=== PATIENT | female | born 1945 | race Caucasian/White ===

== ENCOUNTER 2017-03-05 14:24 | Emergency (ER) | payer MEDICARE, BC ==
[~2017-03-05] VITALS: Ht 162.6 cm; Wt 63.5 kg
--- NOTE | 2017-03-05 14:55 | NUR ---
PT BIB SELF C/O LUIS LOWER EXTREMITY EDEMA, WARMTH, ERYTHEMA, AND RASH THAT IS WEEPING X3-4 DAYS. NOW SPREADING TO INSIDE OF L LOWER ARM WITH ERYTHEMA AND WARMTH. SKIN WARM NONDIAPHORETIC. RESP EVEN UNLABORED. NAD NOTED. NO OTHER RASHES OR REDNESS NOTED. IN ER BED 02.
[2017-03-05 14:56] LABS: BASOPHILS % (AUTO) 0.5 % (0.0-2.0); EOSINOPHILS % (AUTO) 3.3 % (0.0-6.0); HEMATOCRIT 42 % (33-45); HEMOGLOBIN 13.9 g/dL (11.5-14.8); LYMPHOCYTES % (AUTO) 27.4 % (20.0-44.0); MEAN CORPUSCULAR HEMOGLOBIN 30 PG (26.0-33.0); MEAN CORPUSCULAR HGB CONC 33 g/dl (31.0-36.0); MEAN CORPUSCULAR VOLUME 91 fL (82-100); MONOCYTES % (AUTO) 8.3 % (2.0-12.0); NEUTROPHILS % (AUTO) 60.5 % (43.0-81.0); PLATELET COUNT (AUTO) 287 /CMM (150-450); RDW COEFFICIENT OF VARIATION 13.3 (11.5-15.0); RED BLOOD CELL COUNT(AUTO) 4.59 MIL/uL (4.0-5.2)
[2017-03-05] MEDS ORDERED: IV SET PRIMARY PUMP SET 1 EA INFUS.SET MC ONE (14:56)
[2017-03-05 14:57] LABS: EOSINOPHILS # (AUTO) 0.2 /CMM (0.0-0.7); LYMPHOCYTES # (AUTO) 1.6 /CMM (0.8-4.8); MONOCYTES # (AUTO) 0.5 /CMM (0.1-1.30); NEUTROPHILS # (AUTO) 3.7 /CMM (1.8-8.9)
[2017-03-05] MEDS ORDERED: VANCOMYCIN 1 GM in IV D5W 250 ML IV ONE (15:00)
[2017-03-05 15:07] LABS: CALCIUM, SERUM 9.5 mg/dL (8.5-10.1); CREATININE 0.7 mg/dL (0.6-1.3); POTASSIUM 3.8 mmol/L (3.5-5.1)
--- NOTE | 2017-03-05 16:33 | NUR ---
Patient discharged to home in stable condition. Written and verbal after care instructions given. Patient verbalizes understanding of instruction. IV removed. Catheter intact and site benign. Pressure and 4x4 applied to site. No bleeding noted. AMBULATORY WITH STEADY GAIT.
[2017-03-05 16:34] VITALS: BP 110/78
== END 2017-03-05 16:34 | disposition home or self-care (01) ==
LOC: ER 14:26
DX: L03.116 Cellulitis of left lower limb (principal); L03.115 Cellulitis of right lower limb; Z88.8 Allergy status to other drugs, medicaments and biological substances
CPT/HCPCS: 36415; 80048; 85025; 87040 ×2; 93970; 96365; 99285; A4606; J3370; J7060; Z7610

== ENCOUNTER 2017-03-16 11:47 | Inpatient (IN) | payer MEDICARE, BC ==
[~2017-03-16] VITALS: Ht 167.6 cm; Wt 79.4 kg
--- NOTE | 2017-03-16 12:09 | NUR ---
PT TO ED ROOM 04. bilateral upper and lower extremities swelling/cellulitis. A/A/O. NAD. VS WNL. AMBULATORY W/ STEADY GAIT. CONENCTED TO MONITOR. AWAITING FOR EVAL.
[2017-03-16] MEDS ORDERED: ONDANSETRON HCL/PF - ER 4 MG/2 ML VIAL IV ONE (13:00)
[2017-03-16] MEDS ORDERED: VANCOMYCIN 1 GM in IV D5W 250 ML IV ONE (13:00)
[2017-03-16] MEDS ORDERED: IV NS 0.9% 1,000 ML BAG IV ONE (13:00)
[2017-03-16] MEDS ORDERED: MORPHINE SULFATE INJ 2 MG/ML DISP.SYRIN IV ONE (13:00)
[2017-03-16] MEDS ORDERED: ONDANSETRON HCL/PF 4 MG/2 ML VIAL ONE (13:06)
[2017-03-16] MEDS ORDERED: MORPHINE SULFATE INJ 2 MG/ML DISP.SYRIN ONE (13:06)
[2017-03-16] MEDS ORDERED: IV SET PRIMARY PUMP SET 1 EA INFUS.SET MC ONE ×3 (13:06→20:19)
[2017-03-16] MEDS ORDERED: IV NS 0.9% 1,000 ML ONE ×2 (13:06→13:08)
[2017-03-16] MEDS ORDERED: IV NS 0.9% 500 ML IV ONE (13:08)
[2017-03-16 13:29] LABS: BASOPHILS % (AUTO) 0.4 % (0.0-2.0); EOSINOPHILS # (AUTO) 0.3 /CMM (0.0-0.7); EOSINOPHILS % (AUTO) 4.9 % (0.0-6.0); HEMATOCRIT 37 % (33-45); HEMOGLOBIN 12.4 g/dL (11.5-14.8); LYMPHOCYTES # (AUTO) 1.4 /CMM (0.8-4.8); LYMPHOCYTES % (AUTO) 19.5 % (20.0-44.0); MEAN CORPUSCULAR HEMOGLOBIN 31 PG (26.0-33.0); MEAN CORPUSCULAR HGB CONC 34 g/dl (31.0-36.0); MEAN CORPUSCULAR VOLUME 91 fL (82-100); MONOCYTES # (AUTO) 0.5 /CMM (0.1-1.30); MONOCYTES % (AUTO) 7.4 % (2.0-12.0); NEUTROPHILS # (AUTO) 4.8 /CMM (1.8-8.9); NEUTROPHILS % (AUTO) 67.8 % (43.0-81.0); PLATELET COUNT (AUTO) 380 /CMM (150-450); RDW COEFFICIENT OF VARIATION 14.1 (11.5-15.0); RED BLOOD CELL COUNT(AUTO) 4.07 MIL/uL (4.0-5.2)
[2017-03-16] MEDS ORDERED: PIPERACILLIN /TAZOBACTAM 3.375 G in IV D5W 50 ML IV ONE (13:30)
--- NOTE | 2017-03-16 13:40 | NUR ---
PT MEDICATED ORDERED.
[2017-03-16 13:49] LABS: CALCIUM, SERUM 8.8 mg/dL (8.5-10.1); CARBON DIOXIDE 29 mmol/L (21-32); CHLORIDE 106 mmol/L (98-107); CREATININE 0.8 mg/dL (0.6-1.3); GLUCOSE 112 mg/dL (74-106); POTASSIUM 4.5 mmol/L (3.5-5.1); SODIUM SERUM 140 mmol/L (136-145); UREA NITROGEN, BLOOD 17 mg/dL (7-18)
[2017-03-16 13:51] LABS: INR 0.94 (0.87-1.13)
[2017-03-16] MEDS ORDERED: DULO60CA45 PO (13:53)
[2017-03-16] MEDS ORDERED: AMPH10TA4 PO (13:53)
[2017-03-16] MEDS ORDERED: BUPR-51 PO (13:53)
[2017-03-16 13:55] LABS: LACTIC ACID 1.2 mmol/L (0.4-2.0); TROPONIN I < 0.017 ng/mL (0.00-0.056)
[2017-03-16 13:56] LABS: ALANINE AMINOTRANSFERASE 23 U/L (12-78); ALBUMIN 3.2 g/dL (3.4-5.0); ALKALINE PHOSPHATASE 80 U/L (46-116); ASPARTATE AMINOTRANSFERASE 23 U/L (15-37); BILIRUBIN,DIRECT 0.1 mg/dL (0.0-0.2); BILIRUBIN,TOTAL 0.3 mg/dL (0.2-1.0); TOTAL PROTEIN, SERUM 6.6 g/dL (6.4-8.2)
--- NOTE | 2017-03-16 14:00 | NUR ---
EPIC PAGED, FOOD PREPARATION WORKER
--- NOTE | 2017-03-16 14:02 | NUR ---
CALLED NURSING SUP. FOR MS BED, INFORMED HER SHE MIGHT NEED ISO
[2017-03-16 14:59] LABS: APPEARANCE,URINE Clear (CLEAR); BILIRUBIN,URINE Negative (NEGATIVE); BLOOD, URINE Negative Ery/uL (NEGATIVE); COLOR,URINE Yellow (YELLOW); KETONES,URINE 15 (NEGATIVE); LEUKOCYTE ESTERASE ,URINE Negative (NEGATIVE); NITRITE, URINE Negative (NEGATIVE); PROTEIN,URINE Negative (NEGATIVE); UGLUCOSE Negative (NEGATIVE); UROBILINOGEN,URINE 0.2 EU/dL (0.2)
--- NOTE | 2017-03-16 15:30 | NUR ---
RECEIVED PT FROM ER IN STABLE CONDITION, ALERT AND ORIENTED, NO SOB OR DISTRESS NOTED, NO PAIN AT THIS TIME, ABLE TO AMBULATE DURING TRANSFER FROM [facility] TO BED, ORIENTED OT ROOM, CALL LIGHT AND ENVIRONMENT, WILL INFORM DR. LOWRY ABOUT ADMISSION. PT. SISTER AT BEDSIDE.
[2017-03-16] MEDS ORDERED: MAG HYDROX/AL HYDROX/SIMETH 30 ML UDC PO PRN (16:00)
[2017-03-16] MEDS ORDERED: ACETAMINOPHEN 325 MG TABLET PO PRN (16:00)
[2017-03-16] MEDS ORDERED: MAGNESIUM HYDROXIDE 30 ML UDC PO PRN (16:00)
[2017-03-16] MEDS ORDERED: ZOLPIDEM TARTRATE 5 MG TABLET PO PRN (16:00)
[2017-03-16] MEDS ORDERED: ONDANSETRON HCL/PF 4 MG/2 ML VIAL IVP PRN (16:00)
[2017-03-16] MEDS ORDERED: Z GUARD REMEDY 2 OZ OINT TP PRN (16:00)
[2017-03-16] MEDS ORDERED: HYDROCODONE/APAP 5/325MG 1 EACH TABLET PO PRN (16:00)
[2017-03-16] MEDS ORDERED: TRAMADOL HCL 50 MG TABLET PO PRN (16:30)
[2017-03-16] MEDS ORDERED: FEE PK DOSING 1 MIN EA MC ONE (16:37)
--- NOTE | 2017-03-16 17:00 | NUR ---
PT SEEN BY
[2017-03-16] MEDS: GABAPENTIN 100 MG CAPSULE PO SCH (17:01)
[2017-03-16] MEDS: ENOXAPARIN SODIUM 40 MG/0.4 ML DISP.SYRIN SQ SCH (17:03)
[2017-03-16] MEDS ORDERED: PERMETHRIN 5% CRM 60 GM TUBE TP ONE ×2 (17:30→20:00)
[2017-03-16] MEDS ORDERED: TRIAMCINOLONE ACETONIDE 0.5% 15 GM TUBE TP SCH (17:30)
[2017-03-16] MEDS: LORATADINE 10 MG TABLET PO SCH (18:22)
--- NOTE | 2017-03-16 19:08 | NUR ---
PT IS IN BED RESTING. SHE IS CURRENTLY KNITTING A SCARF. SHE IS A/OX4. NO SOB OR ANY S/S OF DISTRESS NOTED. BED IS IN LOW LOCKED POSITION. CALL LIGHT IS WITHIN REACH. WILL ENDORSE CARE TO PM SHIFT.
--- NOTE | 2017-03-16 19:30 | NUR ---
RN NOTES RECEIVED PT. AWAKE ON BED, A/OX4, AMBULATORY, BILATERAL UPPER/LOWER RASHES, DENIES PAIN, NO SOB, CALLL LIGHT WITHIN REACH, SIDERAILS UPX2 CONTINUE TO MONITOR
[2017-03-16 20:00] VITALS: BP 125/58
[2017-03-16] MEDS ORDERED: SECONDARY IV SET 1 EA INFUS.SET MC ONE (20:19)
[2017-03-16] MEDS ORDERED: IV NS 0.9% 250 ML IV ONE (20:19)
[2017-03-16] MEDS: CEFTRIAXONE 1 G in IV D5W 50 ML IV SCH (20:36)
[2017-03-16] MEDS: TRIAMCINOLONE ACETONIDE 0.1% CR 15 GM TUBE TP SCH (22:53)
[2017-03-17] MEDS ORDERED: SECONDARY IV SET 1 EA INFUS.SET MC ONE (02:33)
[2017-03-17] MEDS: VANCOMYCIN 1 GM in IV D5W 250 ML IV SCH ×2 (02:39→14:19)
--- NOTE | 2017-03-17 06:34 | NUR ---
RN NOTES AWAKE, MORNING CARE RENDERED, DENIES PAIN, NO SOB, CALL LIGHT WITHIN REACH, SIDERAILS UPX2 PT. NEEDS ATTENDED. ENDORSED TO DAYSHIFT NURSE FOR CONTINUITY OF CARE
[2017-03-17 06:43] LABS: BASOPHILS % (AUTO) 0.2 % (0.0-2.0); EOSINOPHILS # (AUTO) 0.4 /CMM (0.0-0.7); EOSINOPHILS % (AUTO) 7.2 % (0.0-6.0); HEMATOCRIT 34 % (33-45); HEMOGLOBIN 11.7 g/dL (11.5-14.8); LYMPHOCYTES # (AUTO) 1.6 /CMM (0.8-4.8); LYMPHOCYTES % (AUTO) 25.5 % (20.0-44.0); MEAN CORPUSCULAR HEMOGLOBIN 32 PG (26.0-33.0); MEAN CORPUSCULAR HGB CONC 34 g/dl (31.0-36.0); MEAN CORPUSCULAR VOLUME 94 fL (82-100); MONOCYTES # (AUTO) 0.6 /CMM (0.1-1.30); MONOCYTES % (AUTO) 9.7 % (2.0-12.0); NEUTROPHILS # (AUTO) 3.5 /CMM (1.8-8.9); NEUTROPHILS % (AUTO) 57.4 % (43.0-81.0); PLATELET COUNT (AUTO) 338 /CMM (150-450); RDW COEFFICIENT OF VARIATION 14.1 (11.5-15.0); RED BLOOD CELL COUNT(AUTO) 3.64 MIL/uL (4.0-5.2); WHITE BLOOD COUNT (AUTO) 6.1 K/uL (4.3-11.0)
[2017-03-17 07:39] LABS: CREATININE 0.9 mg/dL (0.6-1.3); MAGNESIUM 2.1 mg/dL (1.8-2.4); PHOSPHORUS 2.7 mg/dL (2.5-4.9)
[2017-03-17 08:00] VITALS: BP 125/58
--- NOTE | 2017-03-17 08:00 | NUR ---
PT IS A/O X4. RESTING IN BED. NO SOB OR ANY S/S OF DISTRESS NOTED. IV IS INTACT AND PATENT. BED IS IN LOW LOCKED POSITION. CALL LIGHT WITHIN REACH. WILL CONTINUE TO MONITOR THROUGHOUT DAY.
[2017-03-17] MEDS ORDERED: AMPHET ASP/AMPHET/D-AMPHET 10 MG TABLET PO SCH (09:00)
[2017-03-17] MEDS: DULOXETINE HCL 30 MG CAPSULE.DR PO SCH (09:09)
[2017-03-17] MEDS: BUPROPION XL 150 MG TAB.ER.24 PO SCH (09:09)
[2017-03-17] MEDS: GABAPENTIN 100 MG CAPSULE PO SCH ×2 (09:10→17:03)
[2017-03-17] MEDS: LORATADINE 10 MG TABLET PO SCH (09:10)
[2017-03-17] MEDS: PANTOPRAZOLE 40 MG TABLET.DR PO SCH (09:10)
[2017-03-17] MEDS: TRIAMCINOLONE ACETONIDE 0.1% CR 15 GM TUBE TP SCH ×4 (11:35→22:42)
[2017-03-17 16:00] VITALS: BP 118/59
[2017-03-17] MEDS ORDERED: FUROSEMIDE 20 MG/2 ML VIAL IV ONE (16:30)
[2017-03-17] MEDS: LACTOBACILLUS RHAMNOSUS GG 1 EACH CAP.SPRINK PO SCH (17:03)
--- NOTE | 2017-03-17 18:59 | NUR ---
MS RN NOTES PT IS IN BED RESTING COMFORTABLY. IV IS INTACT AND PATENT. PATIENT USING DISTRACTION TECHNIQUES SUCH KNITTING. PT IS A/O X4. DENIES ANY PAIN AT THIS TIME. NO DISTRESS OR SOB NOTED. BED IS IN LOW LOCKED POSITION. CALL LIGHT IS WITHIN REACH. WILL ENDORSE CARE TO PM SHIFT.
--- NOTE | 2017-03-17 19:15 | NUR ---
MS RN NOTES RECEIVED ON BED A/O X4,BREATHING REGULAR,NOT IN ANY FORM OF DISTRESS, SALINE LOCK RIGHT AC INTACT AND PATENT,ON PROPHYLACTIC CONTACT ISOLATION FOR GENERALIZED RASHES.NOTED RASHES ON LOWER EXTREMITIES ALREADY DRY.SWELLING GONE DOWN.CALL LIGHT IN REACH,NEEDS ANTICIPATED.
[2017-03-17] MEDS: CEFTRIAXONE 1 G in IV D5W 50 ML IV SCH (19:55)
--- NOTE | 2017-03-17 19:55 | NUR ---
MS RN NOTES DUE ROCEPHIN 1GM IVPB HUNG
[2017-03-17 20:00] VITALS: BP_SYST 123; BP_DIAS 61; BP_DIAS 65
[2017-03-17] MEDS: ENOXAPARIN SODIUM 40 MG/0.4 ML DISP.SYRIN SQ SCH (20:58)
[2017-03-18] MEDS: VANCOMYCIN 1 GM in IV D5W 250 ML IV SCH ×2 (01:28→13:45)
--- NOTE | 2017-03-18 02:00 | NUR ---
MS RN NOTES IV SITE LEAKING,NEW SALINE LOCK PLACE ON LEFT HAND #22,IV ABX RE STARTED.
--- NOTE | 2017-03-18 06:05 | NUR ---
MS RN NOTES FAIRLY RESTED AT NIGHT,PER PATIENT CREAM FOR ITCHINESS WAS VERY EFFECTIVE AND SHE FEELS MUCH BETTER COMPARE TO PAST FEW DAYS.NEEDS ATTENDED.WILL ENDORSE TO DAY NURSE FOR JOE.
[2017-03-18 07:15] LABS: CALCIUM, SERUM 8.2 mg/dL (8.5-10.1); CREATININE 0.8 mg/dL (0.6-1.3); MAGNESIUM 2.1 mg/dL (1.8-2.4); PHOSPHORUS 3.2 mg/dL (2.5-4.9); POTASSIUM 3.7 mmol/L (3.5-5.1)
--- NOTE | 2017-03-18 07:15 | NUR ---
MS RN NOTES RECEIVED PATIENT IN BED, A/O X4. BREATHING EVEN AND NON LABORED, ON ROOM AIR, TOLERATING WELL, NO SOB. NO C/O PAIN OR ANY DISCOMFORT. BODY RASHES PRESENT, WILL CONT TO MONITOR. CALL LIGHT WITHIN REACH.
[2017-03-18 08:00] VITALS: BP 110/50
[2017-03-18] MEDS: DULOXETINE HCL 30 MG CAPSULE.DR PO SCH (08:22)
[2017-03-18] MEDS: LACTOBACILLUS RHAMNOSUS GG 1 EACH CAP.SPRINK PO SCH ×2 (08:22→16:58)
[2017-03-18] MEDS: PANTOPRAZOLE 40 MG TABLET.DR PO SCH (08:22)
[2017-03-18] MEDS: GABAPENTIN 100 MG CAPSULE PO SCH ×2 (08:22→16:58)
[2017-03-18] MEDS: LORATADINE 10 MG TABLET PO SCH (08:22)
[2017-03-18] MEDS: BUPROPION XL 150 MG TAB.ER.24 PO SCH (08:22)
[2017-03-18] MEDS: TRIAMCINOLONE ACETONIDE 0.1% CR 15 GM TUBE TP SCH ×4 (08:25→21:03)
--- NOTE | 2017-03-18 10:18 | NUR ---
PATIENT IS SEEN BY DR. ZAIDI TODAY. DC PLANNING IN AM PER MD.
[2017-03-18] MEDS: diphenhydrAMINE HCL 50 MG/ML VIAL IV PRN ×2 (11:54→23:57)
[2017-03-18 16:00] VITALS: BP 117/60
--- NOTE | 2017-03-18 19:24 | NUR ---
MS RN CLOSING NOTES PATIENT IN BED, A/O X3. NOT IN DISTRESS, COOPERATIVE. IV IN LEFT AC PATENT AND INTACT, FLUSHES WELL. ON ANTIBIOTIC WITH NO ADVERSE REACTION. AFEBRILE. BODY RASHES IMPROVING, REMAIN ON CONTACT ISOLATION FOR PROPHYLAXIS. NO C/O PAIN AT THIS TIME. ENDORSED TO POPCORN VENDOR RN FOR CONTINUITY OF CARE.
--- NOTE | 2017-03-18 19:45 | NUR ---
MS RN NOTES ON BED A/O X4,DOING HER COLE THING,BREATHING NORMAL,SKIN RASHES APPEARS DRY AND CRUSTING.SALINE LOCK LEFT HAND INTACT AND PATENT.ON PROPHYLACTIC CONTACT ISOLATION.CALL LIGHT IN REACH,NEEDS ANTICIPATED.
[2017-03-18] MEDS: CEFTRIAXONE 1 G in IV D5W 50 ML IV SCH (19:51)
[2017-03-18 20:00] VITALS: BP 129/67
--- NOTE | 2017-03-18 20:00 | NUR ---
MS RN NOTES DUE ROCEPHIN 1GM IVPB HUNG
[2017-03-18] MEDS: ENOXAPARIN SODIUM 40 MG/0.4 ML DISP.SYRIN SQ SCH (21:13)
--- NOTE | 2017-03-18 23:57 | NUR ---
MS RN NOTES C/O GENERALIZED ITCHINESS,BENADRYL 25MG IV ADMINISTERED PER PATIENT REQUEST.
[2017-03-19] MEDS: VANCOMYCIN 1 GM in IV D5W 250 ML IV SCH ×2 (01:40→14:01)
--- NOTE | 2017-03-19 02:00 | NUR ---
MS RN NOTES DUE VANCOMYCIN 1GM IVPB HUNG
--- NOTE | 2017-03-19 06:49 | NUR ---
MS RN NOTES NO SIGNIFICANT CHANGE IN STATUS,WITH MINIMAL IMPROVEMENT ON SKIN RASHES,CALL LIGHT IN REACH,NEEDS ATTENDED.ENDORSED
--- NOTE | 2017-03-19 07:15 | NUR ---
MS RN NOTES RECEIVED PATIENT IN BED, A/O X4. APPEARS COMFORTABLE IN BED, NO C/O PAIN OR ANY DISCOMFORT. BODY RASH STILL PRESENT WITH MINIMAL IMPROVEMENT. ON CONTACT ISOLATION FOR PROPHYLAXIS PRECAUTION. CALL LIGHT WITHIN REACH. WILL CONT TO MONITOR.
[2017-03-19 08:00] VITALS: BP 148/72
[2017-03-19] MEDS: GABAPENTIN 100 MG CAPSULE PO SCH ×2 (08:22→16:39)
[2017-03-19] MEDS: PANTOPRAZOLE 40 MG TABLET.DR PO SCH (08:22)
[2017-03-19] MEDS: LACTOBACILLUS RHAMNOSUS GG 1 EACH CAP.SPRINK PO SCH ×2 (08:22→16:39)
[2017-03-19] MEDS: LORATADINE 10 MG TABLET PO SCH (08:22)
[2017-03-19] MEDS: DULOXETINE HCL 30 MG CAPSULE.DR PO SCH (08:22)
[2017-03-19] MEDS: BUPROPION XL 150 MG TAB.ER.24 PO SCH (08:22)
[2017-03-19] MEDS: TRIAMCINOLONE ACETONIDE 0.1% CR 15 GM TUBE TP SCH ×4 (08:23→20:52)
[2017-03-19 08:59] LABS: CALCIUM, SERUM 8.3 mg/dL (8.5-10.1); CREATININE 0.7 mg/dL (0.6-1.3); POTASSIUM 4.1 mmol/L (3.5-5.1)
--- NOTE | 2017-03-19 12:47 | NUR ---
PATIENT IS SEEN BY MARIYA, ORDERED SKIN BIOPSY BY DR. RASHI CORTEZ NOTED AND ACKNOWLEDGED. PATIENT IS AWARE.
--- NOTE | 2017-03-19 12:52 | NUR ---
CHARLINE TEST WAS CANCELLED 03/16/17. INFORMED CHUTE BOSS-ITZEL THAT THE TEST WAS CANCELLED. CHUTE BOSS REVIEWED, AND STATED TO RE ORDER THE TEST.
--- NOTE | 2017-03-19 15:34 | NUR ---
DUPLEX VENOUS LOWE EXT FROM PREVIOUS ADMISSION (03/05/17) RESULTED NO SONOGRAPHIC EVIDENCE FOR DVT IN THE BILATERAL LOWER EXT. NOTIFIED DR. LOWRY, STATED TO DO ARTERIAL ONLY. INFORMED TRU-ARMTHOMSA.
[2017-03-19 16:00] VITALS: BP 142/75
--- NOTE | 2017-03-19 18:18 | NUR ---
CHARLINE TEST SENT OUT PER LAB, SPOKE TO BARRY.
--- NOTE | 2017-03-19 18:18 | NUR ---
MS RN CLOSING NOTES PATIENT IN BED, A/OX4. NOT IN DISTRESS. BODY RASH MEDICATED WITH TRIAMCINOLONE CREAM WITH MINIMAL IMPROVEMENT, PATIENT IS ON ANTIBIOTIC WITH NO ADVERSE REACTION, AFEBRILE. REMAIN ON CONTACT ISOLATION FOR PROPHYLAXIS PRECAUTION ONLY. CALL LIGHT WITHIN REACH. FOR SKIN BIOPSY BY DR. CORTEZ, PATIENT CONSENTED THE PROCEDURE, CONSENT FORM PLACE IN THE CHART. WILL ENDORSE TO MIXER WET POUR RN FOR CONTINUITY OF CARE.
--- NOTE | 2017-03-19 19:30 | NUR ---
MS RN NOTE PATIENT STABLE. NO S/S OF PAIN OR DISCOMFORT AT THIS TIME. BED LOCKED AND IN LOWEST POSITION, SIDE RAILS UP, CALL LIGHT WITHIN REACH. CONTACT PRECAUTIONS IN PLACE A PROPHYLAXIS. WILL CONTINUE TO MONITOR.
[2017-03-19 20:00] VITALS: BP 132/99
[2017-03-19] MEDS: CEFTRIAXONE 1 G in IV D5W 50 ML IV SCH (20:48)
[2017-03-19] MEDS: ENOXAPARIN SODIUM 40 MG/0.4 ML DISP.SYRIN SQ SCH (20:48)
[2017-03-20] MEDS: VANCOMYCIN 1 GM in IV D5W 250 ML IV SCH ×2 (01:39→13:02)
[2017-03-20] MEDS: diphenhydrAMINE HCL 50 MG/ML VIAL IV PRN ×2 (01:39→09:39)
--- NOTE | 2017-03-20 06:36 | NUR ---
MS RN NOTE PATIENT STABLE. KEPT COMFORTABLE THROUGH THE NIGHT. PICTURES TAKEN OF RASHES AND PLACED IN CHART. WILL ENDORSE TO DAY SHIFT FOR JOE.
[2017-03-20 06:44] LABS: BASOPHILS % (AUTO) 0.8 % (0.0-2.0); EOSINOPHILS # (AUTO) 0.4 /CMM (0.0-0.7); EOSINOPHILS % (AUTO) 8.4 % (0.0-6.0); HEMATOCRIT 33 % (33-45); HEMOGLOBIN 11.1 g/dL (11.5-14.8); LYMPHOCYTES % (AUTO) 39.2 % (20.0-44.0); MEAN CORPUSCULAR HEMOGLOBIN 32 PG (26.0-33.0); MEAN CORPUSCULAR HGB CONC 34 g/dl (31.0-36.0); MEAN CORPUSCULAR VOLUME 94 fL (82-100); MONOCYTES # (AUTO) 0.5 /CMM (0.1-1.30); MONOCYTES % (AUTO) 9.9 % (2.0-12.0); NEUTROPHILS # (AUTO) 2.1 /CMM (1.8-8.9); NEUTROPHILS % (AUTO) 41.7 % (43.0-81.0); PLATELET COUNT (AUTO) 365 /CMM (150-450); RDW COEFFICIENT OF VARIATION 14.6 (11.5-15.0); RED BLOOD CELL COUNT(AUTO) 3.49 MIL/uL (4.0-5.2); WHITE BLOOD COUNT (AUTO) 5.1 K/uL (4.3-11.0)
[2017-03-20] MEDS: PANTOPRAZOLE 40 MG TABLET.DR PO SCH (06:58)
[2017-03-20 07:11] LABS: CALCIUM, SERUM 8.6 mg/dL (8.5-10.1); CREATININE 0.8 mg/dL (0.6-1.3); MAGNESIUM 2.2 mg/dL (1.8-2.4); PHOSPHORUS 3.7 mg/dL (2.5-4.9)
--- NOTE | 2017-03-20 07:30 | NUR ---
MS/RN Patient received Patient received from delivery engineer. No needs at this time, denies pain, only complaint is of itching. Madanadryl next due at 0930, patient made aware. Will continue to monitor and ensure safety.
[2017-03-20 08:00] VITALS: BP 114/56
[2017-03-20] MEDS: BUPROPION XL 150 MG TAB.ER.24 PO SCH (08:15)
[2017-03-20] MEDS: LACTOBACILLUS RHAMNOSUS GG 1 EACH CAP.SPRINK PO SCH (08:15)
[2017-03-20] MEDS: TRIAMCINOLONE ACETONIDE 0.1% CR 15 GM TUBE TP SCH ×2 (08:16→13:02)
[2017-03-20] MEDS: LORATADINE 10 MG TABLET PO SCH (08:16)
[2017-03-20] MEDS: DULOXETINE HCL 30 MG CAPSULE.DR PO SCH (08:16)
[2017-03-20] MEDS: GABAPENTIN 100 MG CAPSULE PO SCH (08:16)
--- NOTE | 2017-03-20 08:30 | NUR ---
MS/RN Medications Morning medication administered as ordered.
--- NOTE | 2017-03-20 10:00 | NUR ---
MS/RN S/B Dr Andrews Seen by Dr Andrews - patient may be discharged to home after skin biopsy.
--- NOTE | 2017-03-20 13:00 | NUR ---
MS/RN S/B Dr Valdez Seen by Dr Valdez - skin biopsy at bedside, specimens collected and taken to pathology.
--- NOTE | 2017-03-20 14:00 | NUR ---
MS/RN Dr Andrews [employer] exchange called to page Dr Andrews for discharge order for patient.
--- NOTE | 2017-03-20 14:50 | NUR ---
MS/bench lay out technician instructions Patient provided with three copies of medical record, (personal copy and one each for primary and kosher inspector). Exit care completed and signed by patient. Education provided to patient on new medications, including any possible side effects. Instructed on signs and symptoms and when to return to the emergency room. Time allowed for all questions to be answered. Heplock and name bands removed. All personal belongings returned to patient and signed for on belongings list.
--- NOTE | 2017-03-20 15:00 | NUR ---
MS/RN Prescriptions Patient provided with two prescriptions, for antibiotic and steroid ointment.
--- NOTE | 2017-03-20 15:15 | NUR ---
MS/loaders Patient escorted to main lobby via wheelchair with VALVE TECHNICIAN.
[2017-03-21 19:10] LABS: *ANA ANTI-CENTROMERE B AB <0.2 AI (0.0-0.9); *ANA ANTI-DNA(DS) AB, QN <1 IU/mL (0-9); *ANA ANTI-JO-1 <0.2 AI (0.0-0.9); *ANA ANTICHROMATIN ANTIBODY <0.2 AI (0.0-0.9); *ANA RNP ANTIBODIES <0.2 AI (0.0-0.9); *ANA SJOGREN'S ANTI-SS-A <0.2 AI (0.0-0.9); *ANA SJOGREN'S ANTI-SS-B <0.2 AI (0.0-0.9); *ANAANTI-SCLERODERMA-70 AB <0.2 AI (0.0-0.9); *ANASMITH AB <0.2 AI (0.0-0.9)
== END 2017-03-20 15:15 | disposition home or self-care (01) | DRG 603 ==
LOC: ER 11:48 → MEDSG2 14:51
PROVIDERS: ADMIT Internal Medicine; ATTEND Internal Medicine
DX: L03.115 Cellulitis of right lower limb (principal); B37.0 Candidal stomatitis; L03.116 Cellulitis of left lower limb; M79.7 Fibromyalgia; F41.9 Anxiety disorder, unspecified; F32.9 Major depressive disorder, single episode, unspecified; B86 Scabies
CPT/HCPCS: 36415; 71010-TC; 80048-TC; 80061-TC; 80076-TC; 80202-TC; 81000-TC; 82746; 83605-TC; 83735-TC; 84100-TC; 84443-TC; 84484-TC; 85025-TC; 85652-TC; 85730-TC; 86225; 86235; 87040-TC; 87081-TC; 87086-TC; 88305-TC; 88312-TC; A4606; J0696; J1200; J1650; J1940; J2270; J2405; J2543; J3370; J7030; J7040; J7050; J7060; Z7610

== ENCOUNTER → 2017-03-23 | Outpatient (CLI) | payer MEDICARE, BC ==
[~2017-03-23] MED LIST: AMPH10TA4 PO; BUPR-51 PO; DULO60CA45 PO
== END | disposition home or self-care (01) ==
LOC: WOU 14:01
PROVIDERS: ATTEND Surgery
DX: L27.1 Localized skin eruption due to drugs and medicaments taken internally (principal); T37.0X5D Adverse effect of sulfonamides, subsequent encounter; R21 Rash and other nonspecific skin eruption; Z87.891 Personal history of nicotine dependence; M06.9 Rheumatoid arthritis, unspecified
CPT/HCPCS: G0463